=== PATIENT | male | born 1990 | race African-American/Black ===

== ENCOUNTER 2017-01-05 15:12 | Emergency (ER) | payer SELFPAY ==
[~2017-01-05 15:12] MED LIST: MOTRIN600 M1 PO
== END 2017-01-05 16:55 | disposition home or self-care (01) ==
LOC: CED 15:12 → CFTX 15:12
DX: S09.93XA Unspecified injury of face, initial encounter (principal); W22.8XXA Striking against or struck by other objects, initial encounter; Y92.89 Other specified places as the place of occurrence of the external cause
CPT/HCPCS: 12011; 99283